=== PATIENT | female | born 1955 ===

== ENCOUNTER 2017-11-13 16:01 | Emergency (ER) | payer SELFPAY ==
--- NOTE | 2017-11-13 16:14 | NUR ---
Attempted to triage pt, per ER admitting pt decided not to be seen in ER and left.
== END 2017-11-13 16:18 | disposition left against medical advice (07) ==
LOC: ER 16:01
DX: Z53.21 Procedure and treatment not carried out due to patient leaving prior to being seen by health care provider (principal)